=== PATIENT | male | born 1975 | race American Indian/Alaskan Native ===

== ENCOUNTER 2018-08-04 20:44 | Emergency (ER) | payer MEDICAID, OTHER, SELFPAY ==
--- NOTE | 2018-08-04 20:47 | ED_ITS ---
HPI - Extremity Injury (Lower) <ASHLEY Oscar - Last Filed: 08/04/18 22:00> General Chief Complaint: Extremity Problem,Nontraumatic Stated Complaint: right leg swelling Time Seen by Provider: 08/04/18 20:46 Source: patient Mode of arrival: ambulatory Limitations: no limitations History of Present Illness HPI Narrative: Healthy 43-year-old male that is an everyday smoker here for complaint of redness to his anterior knee area over the past couple of days. He denies any trauma to the knee. He states that the redness is worsened over the past day. He denies any drainage from the area. No fevers no chills. He is ambulatory into the emergency room. Pain is limited to the anterior portion the right knee and just distal. He denies any other concerns or complaints at this time. Increased pain with palpation to the area Related Data Previous Rx's Medication Instructions Recorded clindamycin HCl 300 mg PO QID #27 cap 08/04/18 Allergies Allergy/AdvReac Type Severity Reaction Status Date / Time No Known Drug Allergies Allergy Verified 08/04/18 21:01 Review of Systems <ASHLEY Oscar - Last Filed: 08/04/18 22:00> Review of Systems All systems reviewed & are unremarkable except as noted in HPI and below Constitutional Denies chills, Denies fever(s), Denies lethargy and Denies weakness Eyes Denies change in vision, Denies eye discharge, Denies irritation and Denies loss of vision ENT Ears, Nose, Mouth, and Throat: Denies change in voice, Denies neck pain and Denies sore throat Cardiovascular Denies chest pain, Denies irregular heart rhythm, Denies lightheadedness, Denies palpitations, Denies dyspnea, Denies dyspnea on exertion and Denies orthopnea Respiratory Denies cough, Denies dyspnea, Denies dyspnea on exertion and Denies wheezing Gastrointestinal Gastrointestinal: Denies abdominal pain, Denies change in bowel habits, Denies diarrhea, Denies nausea and Denies vomiting Genitourinary Denies hematuria, Denies flank pain, Denies urinary incontinence and Denies urinary urgency Musculoskeletal Denies neck pain Comments: Redness and discomfort to the right anterior knee/leg Integumentary/Breasts Denies pruritus, Denies erythema, Denies rash and Denies wounds Neurologic Denies confusion, Denies loss of vision and Denies weakness Psychiatric Denies anxiety, Denies confusion, Denies depression, Denies homicidal ideation and Denies suicidal ideation Endocrine Denies palpitations Hematologic/Lymphatic Denies easy bruising Allergic/Immunologic Denies wheezing Exam <ASHLEY Oscar - Last Filed: 08/04/18 22:00> Initial Vital Signs Initial Vital Signs: Vital Signs Temperature 98.8 F 08/04/18 20:57 Pulse Rate 88 08/04/18 20:57 Respiratory Rate 16 08/04/18 20:57 Blood Pressure 137/87 08/04/18 20:57 Pulse Oximetry 98 08/04/18 20:57 Const General: cooperative and well developed Nutritional Appearance: well nourished Orientation: alert, awake, oriented x3 and not confused HENMT Mouth: oral mucosae normal and moist mucous membranes Eyes Conjunctivae: conjunctivae normal Sclera: sclerae normal Pupils: PERRL EOM: EOM intact bilaterally Resp Effort & Inspection: normal respiratory effort, able to speak in complete sentences, no respiratory distress and no use of accessory muscles Auscultation: clear to auscultation bilaterally, no rales, no rhonchi and no wheezes Cardio Rate: regular rate Rhythm: regular rhythm Heart Sounds: no click, no gallops, no murmurs and no rubs Pulses: normal peripheral pulses Skin General: no rashes or lesions noted, No jaundice and No petechiae Neuro General: alert, oriented x3, gait normal and no focal motor deficits Speech: speech normal Extrem Other: Area of erythema to the anterior right knee/proximal benito area roughly 10 -15 cm in diameter. No induration. No fluctuance. Distal sensation is intact. Distal pulses are intact. Distal range of motion is intact. <Amilcar Emmanuel DO - Last Filed: 08/04/18 23:36> Initial Vital Signs Initial Vital Signs: Vital Signs Temperature 98.8 F 08/04/18 20:57 Pulse Rate 88 08/04/18 20:57 Respiratory Rate 16 08/04/18 20:57 Blood Pressure 137/87 08/04/18 20:57 Pulse Oximetry 98 08/04/18 20:57 Course <ASHLEY Oscar - Last Filed: 08/04/18 22:00> Orders Ordered: Discontinued Medications Clindamycin HCl (Cleocin) 300 mg PO NOW ONE Stop: 08/04/18 21:10 Last Admin: 08/04/18 21:21 Dose: 300 mg Vital Signs - 8 hr 08/04/18 20:57 08/04/18 21:49 Temperature 98.8 F 98.7 F Pulse Rate 88 77 Respiratory Rate 16 16 Blood Pressure 137/87 136/84 Pulse Oximetry 98 99 <Amilcar Emmanuel DO - Last Filed: 08/04/18 23:36> Orders Ordered: Discontinued Medications Clindamycin HCl (Cleocin) 300 mg PO NOW ONE Stop: 08/04/18 21:10 Last Admin: 08/04/18 21:21 Dose: 300 mg Vital Signs - 8 hr 08/04/18 20:57 08/04/18 21:49 Temperature 98.8 F 98.7 F Pulse Rate 88 77 Respiratory Rate 16 16 Blood Pressure 137/87 136/84 Pulse Oximetry 98 99 MDM - Extremity Injury (Lower) <ASHLEY Oscar - Last Filed: 08/04/18 22:00> MDM Narrative Medical decision making narrative: Sinus symptoms presents as starting cellulitis to the anterior portion of the right knee/leg. He is placed on clindamycin orally. He is instructed to follow up with primary care provider in the next few days for re-evaluation. Area of erythema was marked with a skin marker. For any worsening symptoms return to the emergency room for further evaluation. [id number] ibuprofen as needed for any discomfort Discharge Plan Departure Patient Disposition: Home Clinical Impression: Cellulitis of leg, right Discharge Date/Time: 08/04/18 21:50 Interventions: ED Discharge Assessment Last Done: 08/04/18 21:49 Instructions: DI for Cellulitis -- Adult Activity Restrictions/Additional Instructions: Signs and symptoms presents as starting cellulitis to the right leg area. You are placed on antibiotics called clindamycin use as directed. Use over-the- counter ibuprofen as needed for any discomfort. Follow up with her primary care provider in the next couple days for re-evaluation. For any worsening symptoms return to the emergency room. Prescriptions: New clindamycin HCl 300 mg capsule 300 mg PO QID Qty: 27 RF: 0 Referrals: Umair Rodriguez MD [Primary Care Provider] - <Amilcar Emmanuel DO - Last Filed: 08/04/18 23:36> Cosign ED Attending Cosignature Attestation: I was immediately available in the department for consultation. Documentation has been reviewed. I agree with assessment and plan.
[2018-08-04 20:57] VITALS: BP 137/87; PULSE 88; RESP 16; TEMP 37.1; O2SAT 98; BMI 38.2
[2018-08-04] MEDS: CLINDAMYCIN 150 MG CAPSULE 300 MG PO (21:21)
[2018-08-04 21:49] VITALS: BP 136/84; PULSE 77; RESP 16; TEMP 37.1; O2SAT 99
== END 2018-08-04 21:50 | disposition home or self-care (01) ==
PROVIDERS: Emergency Provider Nurse Practitioner Family; PCP Family Medicine
DX: L03.115 Cellulitis of right lower limb (principal)
CPT/HCPCS: 99282; 99283

== ENCOUNTER 2022-10-04 15:01 | Observation (INO) | payer MEDICAID, OTHER, SELFPAY ==
[2022-10-04] VITALS (14 sets, daily range): BP systolic 98–170; BP diastolic 53–88; PULSE 72–88; RESP 16–18; TEMP 37.5–38.6; O2SAT 94–100
[2022-10-04 18:32] LABS: Add Manual Diff / Slide Review NO; Basophils Absolute Auto 100 /uL (0-100); Basophils Percent Auto 0.3 % (0-2); Eosinophils Absolute Auto 0 /uL (0-450); Hematocrit 42.2 % (41-53); Hemoglobin 14.3 g/dL (13.5-17.5); Lymphocytes Absolute Auto 1800 /uL (1100-4500); Lymphocytes Percent Auto 8.2 % (25-40); Mean Corpuscular HGB Conc 33.9 % (30-36); Mean Corpuscular Hemoglobin 29.5 PG (26-34); Mean Corpuscular Volume 87.2 fL (80-100); Monocytes Absolute Auto 1300 /uL (0-900); Monocytes Percent Auto 6.1 % (3-14); Neutrophils Absolute Auto 19000 /uL (1500-7000); Neutrophils Percent Auto 85.4 % (50-75); Platelet Count 333 X10^3/uL (150-400); Red Blood Cell Count 4.84 X10^6/uL (4.5-5.9); Red Cell Distribution Width 13.5 % (11.6-14.8); White Blood Cell Count 22.3 X10^3/uL (4.5-11.0)
[2022-10-04 18:34] LABS: Alanine Aminotransferase 28 IU/L (<50); Albumin 4.9 g/dL (3.5-5.0); Albumin Globulin Ratio 0.9 (1.0-2.8); Alkaline Phosphatase 126 U/L (38-126); Aspartate Aminotransferase 30 IU/L (17-59); BUN Creatinine Ratio 10.5 (6-22); Bilirubin Total 1.2 mg/dL (0.2-1.3); Blood Urea Nitrogen 15 mg/dL (9-20); Calcium 9.1 mg/dL (8.4-10.2); Carbon Dioxide 30 mmol/L (22-32); Chloride 99 mmol/L (98-107); Estimated Glomerular Filt Rate > 60 mL/min (>60); Globulin 5.2 g/dL (1.7-4.1); Glucose 134 mg/dL (70-100); HEMOLYSIS < 15 (0-50); Lipase 107 U/L (23-300); Potassium 3.9 mmol/L (3.4-5.1); Sodium 137 mmol/L (137-145); Total Protein 10.1 g/dL (6.3-8.2)
[2022-10-04 18:36] LABS: Amorphous Sediment Urine 1+; Bacteria Urine Occasional (0-1); Ictotest Urine Positive (Negative); Mucus Urine 2+ (Negative); RBC Urine 0-1/HPF (0-5/HPF); Squamous Epithelial Cell Urine 1-5 /HPF (0-5/HPF); WBC Urine 5-10/HPF (0-5/HPF)
--- NOTE | 2022-10-04 18:53 | DI.CT.S_ITS ---
PROCEDURE: CT ABDOMEN PELVIS W CON INDICATIONS: abdominal pain TECHNIQUE: After the administration of IV contrast, axial sections were acquired from the lung bases to the pubic symphysis. Coronal and sagittal reformats were performed. For radiation dose reduction, the following was used: automated exposure control, adjustment of mA and/or kV according to patient size. COMPARISON: None. FINDINGS: Image quality: There is mild motion artifact. Lung bases: There are small clustered indistinct nodules posteriorly within the lower lobes with areas of confluence inferiorly. Smaller indistinct clustered ground-glass nodules are also noted within the right middle lobe and left lingula. Heart: Heart is normal in size. ABDOMEN: Liver: No mass lesion. Gallbladder: Multiple calcified gallstones are demonstrated within a distended gallbladder with mild gallbladder wall thickening. No pericholecystic fluid or fat stranding. Biliary ducts: No biliary ductal dilatation. Pancreas: Unremarkable. Spleen: Normal in size. Adrenal Glands: No adrenal nodules. Kidneys and Ureters: No hydronephrosis. There is a small cyst in the left kidney. Stomach and Bowel: Stomach, small bowel loops, and colon are normal in caliber and wall thickness. Appendix is normal in appearance. Peritoneum: No abnormal intraperitoneal fluid. No free air. Ventral Wall: No hernia. Abdominal Nodes: No retroperitoneal or mesenteric adenopathy by size criteria. Vessels: Aorta and inferior vena cava are normal in size. PELVIS: Pelvic Organs: Unremarkable. Bladder: Unremarkable. Pelvic Nodes: No enlarged lymph nodes. Miscellaneous: No inguinal hernias are seen. Bones: Visualized osseous structures demonstrate no suspicious focal lesions. IMPRESSION: 1. Cholelithiasis with mild gallbladder wall thickening and distention but no pericholecystic fluid or fat stranding. The findings may reflect acute cholecystitis and further evaluation is recommended with ultrasound if clinically indicated. 2. Small clustered nodules within the visualized lung bases most prominent in the lower lobes. The findings are consistent with an infectious or inflammatory process, and are suggestive of atypical pneumonia. 3. No evidence of appendicitis. Dictated by: Dusty Mcmahon M.D. on 10/04/2022 at 20:21 Approved by: Dusty Mcmahon M.D. on 10/04/2022 at 20:24
--- NOTE | 2022-10-04 19:31 | PC.NURSE ---
received to 7 @ [id number]
--- NOTE | 2022-10-04 19:40 | ED.GENADULT ---
HPI - General Adult General Chief complaint: Abdominal Pain Stated complaint: Cant eat or drink,constipation for couple weeks Time Seen by Provider: 10/04/22 19:33 Source: patient Mode of arrival: Ambulatory History of Present Illness HPI narrative: Patient is a 47-year-old male who for the past couple weeks has had abdominal discomfort. He states that because of the discomfort he can not eat and drink. Is having nausea and vomiting today. Eating and drinking makes his symptoms worse. The symptoms have worsened over the past couple days. Is having nausea. Also states that he has not had a bowel movement the past 2 or 3 days.. Denies any urinary symptoms. No prior abdominal surgeries. Has not tried anything for symptoms prior to arrival. Denies chest pain and shortness of breath Related Data Previous Rx's Medication Instructions Recorded clindamycin HCl 300 mg capsule 300 mg PO QID #27 caps 08/04/18 Allergies Allergy/AdvReac Type Severity Reaction Status Date / Time No Known Drug Allergies Allergy Verified 08/04/18 21:01 Review of Systems Constitutional Constitutional: Reports system reviewed and no additional complaints, except as documented Cardiovascular Cardiovascular: Reports system reviewed and no additional complaints, except as documented Respiratory Respiratory: Reports system reviewed and no additional complaints, except as documented Gastrointestinal Gastrointestinal: Reports system reviewed and no additional complaints, except as documented Genitourinary Genitourinary: Reports system reviewed and no additional complaints, except as documented Integumentary/Breasts Skin/Breast: Reports system reviewed and no additional complaints, except as documented Patient History Social History Smoking Status: Current every day smoker Smoking Status: Current every day smoker tobacco type: cigarettes and vaping alcohol intake frequency: 0-2 drinks per day Substance Use Type: does not use Exam Initial Vital Signs Initial Vital Signs: Vital Signs Temperature 99.5 F 10/04/22 15:19 Pulse Rate 88 10/04/22 15:19 Respiratory Rate 18 10/04/22 15:19 Blood Pressure 145/72 H 10/04/22 15:19 Pulse Oximetry 98 10/04/22 15:19 Oxygen Delivery Method Room Air 10/04/22 15:19 Const General: cooperative and No ill appearing HENMT Head: normal to inspection and normocephalic Resp Effort & Inspection: normal respiratory effort Auscultation: clear to auscultation bilaterally Cardio Rate: regular rate Rhythm: regular rhythm GI Inspection: normal to inspection Palpation: soft, No firm and tender (Generalized tenderness) Skin General: no rashes or lesions noted Neuro General: patient alert, patient awake and moves all extremities Extrem General: capillary refill normal Course Orders Ordered: ED Orders 10/04/22 18:02 Ictotest Urine Stat Urine Culture Stat Urine Culture Stat Urine Microscopic Stat 10/04/22 18:13 Complete Blood Count AUTO DIFF Stat Comprehensive Metabolic Panel Stat Lipase Stat 10/04/22 18:53 CT abdomen pelvis w con Stat 10/04/22 20:31 US abdomen limited Stat 10/04/22 22:41 Consult to General Surgery Urgent Hydromorphone HCl (Hydromorphone 0.5 Mg Inj) 1 mg IV Q2H PRN PRN Reason: Pain, Moderate (4-6) Ondansetron HCl (Ondansetron 4 Mg/2 Ml Inj) 4 mg IV Q4HR PRN PRN Reason: Nausea And Vomiting Discontinued Medications Acetaminophen (Acetaminophen 325 Mg Tablet) 650 mg PO NOW ONE Stop: 10/04/22 23:24 Last Admin: 10/04/22 23:36 Dose: 650 mg Documented By: DEB Sodium Chloride (Normal Saline 0.9%) 1,000 mls @ 1,000 mls/hr IV BOLUS ONE Stop: 10/04/22 20:40 Last Infusion: 10/04/22 20:56 Dose: 0 mls/hr Documented By: Admin: 10/04/22 19:49 Dose: 1,000 mls/hr Documented By: DEB Piperacillin Sod/Tazobactam (Sod 4.5 gm/ Sodium Chloride) 100 mls @ 200 mls/hr IV NOW ONE Stop: 10/04/22 22:41 Last Infusion: 10/04/22 23:55 Dose: 0 mls/hr Documented By: Admin: 10/04/22 23:01 Dose: 200 mls/hr Documented By: DEB Morphine Sulfate (Morphine 4 Mg/Ml Inj) 4 mg IV NOW ONE Stop: 10/04/22 19:41 Last Admin: 10/04/22 19:49 Dose: 4 mg Documented By: DEB Ondansetron HCl (Ondansetron 4 Mg Odt) 4 mg PO NOW PRN PRN Reason: Nausea And Vomiting Ondansetron HCl (Ondansetron 4 Mg/2 Ml Inj) 4 mg IV NOW PRN PRN Reason: Nausea And Vomiting Ondansetron HCl (Ondansetron 4 Mg/2 Ml Inj) 4 mg IV NOW ONE Stop: 10/04/22 19:41 Last Admin: 10/04/22 19:48 Dose: 4 mg Documented By: DEB Vital Signs Vital signs: Vital Signs - 8 hr 10/04/22 19:30 10/04/22 19:30 10/04/22 19:53 Pulse Rate 72 80 Respiratory Rate Blood Pressure 142/72 H Pulse Oximetry 97 97 10/04/22 19:53 10/04/22 20:00 10/04/22 20:00 Pulse Rate 77 Respiratory Rate Blood Pressure 136/71 136/68 Pulse Oximetry 97 10/04/22 20:30 10/04/22 20:30 10/04/22 21:00 Pulse Rate 78 Respiratory Rate Blood Pressure 122/64 98/53 L Pulse Oximetry 94 10/04/22 21:00 10/04/22 21:30 10/04/22 21:30 Pulse Rate 76 72 Respiratory Rate 16 Blood Pressure 135/68 Pulse Oximetry 96 100 10/04/22 22:00 10/04/22 22:00 10/04/22 22:30 Pulse Rate 80 Respiratory Rate Blood Pressure 126/70 131/71 Pulse Oximetry 99 10/04/22 22:30 Pulse Rate 79 Respiratory Rate Blood Pressure Pulse Oximetry 98 Medical Decision Making Lab Data Lab results reviewed: Yes I reviewed the patient's lab results. 10/04/22 18:13 10/04/22 18:13 Labs: Lab Results 10/04/22 10/04/22 10/04/22 Range/Units 18:02 18:13 18:13 WBC 22.3 H (4.5-11.0) X10^3/uL RBC 4.84 (4.5-5.9) X10^6/uL Hgb 14.3 (13.5-17.5) g/dL Hct 42.2 (41-53) % MCV 87.2 (80-100) fL MCH 29.5 (26-34) PG MCHC 33.9 (30-36) % RDW 13.5 (11.6-14.8) % Plt Count 333 (150-400) X10^3/uL Neut % (Auto) 85.4 H (50-75) % Lymph % (Auto) 8.2 L (25-40) % [place] % (Auto) 6.1 (3-14) % Eos % (Auto) 0.0 L (2-4) % Baso % (Auto) 0.3 (0-2) % Neut # (Auto) 20318 H (5646-9987) /uL Lymph # (Auto) 1800 (1219-8661) /uL [place] # (Auto) 1300 H (0-900) /uL Eos # (Auto) 0 (0-450) /uL Baso # (Auto) 100 (0-100) /uL Sodium 137 (137-145) mmol/L Potassium 3.9 (3.4-5.1) mmol/L Chloride 99 (98-107) mmol/L Carbon Dioxide 30 (22-32) mmol/L BUN 15 (9-20) mg/dL Creatinine 1.43 H (0.66-1.25) mg/dL Estimated GFR > 60 (>60) mL/min BUN/Creatinine Ratio 10.5 (6-22) Glucose 134 H (70-100) mg/dL Calcium 9.1 (8.4-10.2) mg/dL Total Bilirubin 1.2 (0.2-1.3) mg/dL AST 30 (17-59) IU/L ALT 28 (<50) IU/L Alkaline Phosphatase 126 (38-126) U/L Total Protein 10.1 H (6.3-8.2) g/dL Albumin 4.9 (3.5-5.0) g/dL Globulin 5.2 H (1.7-4.1) g/dL Albumin/Globulin Ratio 0.9 L (1.0-2.8) Lipase 107 (23-300) U/L Ur Bilirubin Confirm Positive H (Negative) Urine RBC 0-1/hpf (0-5/HPF) Urine WBC 5-10/hpf H (0-5/HPF) Ur Squamous Epith Cells 1-5 /hpf (0-5/HPF) Amorphous Sediment 1+ Urine Bacteria Occasional (0-1) (None) Urine Mucus 2+ H (Negative) Ur Culture Indicated? Spotter Urine Dip Bedside Urine Glucose Negative Bedside Urine Bilirubin + 1 Bedside Urine Ketone - Negative Urine Specific [place] 1.030 Bedside Urine Occult Blood - Negative Bedside Urine pH 6.0 Bedside Urine Protein + 30 Bedside Urine Urobilinogen - Negative Bedside Urine Nitrite - Negative Bedside Urine Leukocytes - Negative Esterase Point of care testing: Urine Dip Bedside Urine Glucose Negative Bedside Urine Bilirubin + 1 Bedside Urine Ketone - Negative Urine Specific [place] 1.030 Bedside Urine Occult Blood - Negative Bedside Urine pH 6.0 Bedside Urine Protein + 30 Bedside Urine Urobilinogen - Negative Bedside Urine Nitrite - Negative Bedside Urine Leukocytes - Negative Esterase Imaging Data CT scan - abdomen/pelvis: Radiologist's Impression: PROCEDURE:? CT ABDOMEN PELVIS W CON ? INDICATIONS:? abdominal pain ? TECHNIQUE:? After the administration of IV contrast, axial sections were acquired from the lung bases to the pubic symphysis.? Coronal and sagittal reformats were performed.? For radiation dose reduction, the following was used:? automated exposure control, adjustment of mA and/or kV according to patient size. ? COMPARISON:? None. ? FINDINGS:? Image quality:? There is mild motion artifact.? ? Lung bases:? There are small clustered indistinct nodules posteriorly within the lower lobes with areas of confluence inferiorly.? Smaller indistinct clustered ground-glass nodules are also noted within the right middle lobe and left lingula.? ? Heart:? Heart is normal in size. ? ? ABDOMEN: Liver:? No mass lesion. Gallbladder:? Multiple calcified gallstones are demonstrated within a distended gallbladder with mild gallbladder wall thickening.? No pericholecystic fluid or fat stranding. Biliary ducts:? No biliary ductal dilatation.? ? Pancreas:? Unremarkable.? ? Spleen:? Normal in size.? ? Adrenal Glands:? No adrenal nodules.? ? Kidneys and Ureters:? No hydronephrosis.? There is a small cyst in the left kidney. ? ? Stomach and Bowel:? Stomach, small bowel loops, and colon are normal in caliber and wall thickness.? Appendix is normal in appearance.? Peritoneum:? No abnormal intraperitoneal fluid.? No free air.? ? Ventral Wall: ? No hernia.? Abdominal Nodes:? No retroperitoneal or mesenteric adenopathy by size criteria.? Vessels:? Aorta and inferior vena cava are normal in size.? ? PELVIS: Pelvic Organs:? Unremarkable.? ? Bladder:? Unremarkable.? ? Pelvic Nodes: No enlarged lymph nodes.? Miscellaneous: No inguinal hernias are seen. ? ? ? Bones:? Visualized osseous structures demonstrate no suspicious focal lesions. ? IMPRESSION:? ? 1. Cholelithiasis with mild gallbladder wall thickening and distention but no pericholecystic fluid or fat stranding.? The findings may reflect acute cholecystitis and further evaluation is recommended with ultrasound if clinically indicated. ? 2. Small clustered nodules within the visualized lung bases most prominent in the lower lobes.? The findings are consistent with an infectious or inflammatory process, and are suggestive of atypical pneumonia. ? 3. No evidence of appendicitis.? US - abdomen: Radiologist's Impression: PROCEDURE: US ABDOMEN LIMITED ? INDICATIONS:? RUQ pain eval for GB pathology ? TECHNIQUE:? Real-time focused scanning was performed of the abdomen, with image documentation.? ? COMPARISON:? [facility], CT, CT ABDOMEN PELVIS W CON, 10/04/2022, 19:36. ? FINDINGS:? ? The liver demonstrates increased no focal mass lesions.? ? The gallbladder is distended with multiple echogenic shadowing gallstones.? There is mild wall thickening measuring up to 0.5 cm.? No pericholecystic fluid.? No reported sonographic Mena's sign. ? No definite intra or extrahepatic biliary ductal dilatation. ? Pancreas was not well seen due to bowel gas. ? IMPRESSION:? ? 1. Distention of the gallbladder with cholelithiasis and mild wall thickening but no pericholecystic fluid or reported sonographic Mena's sign.? The findings are equivocal for acute cholecystitis and correlation is recommended clinically. MDM Narrative Medical decision making narrative: Patient was generalized abdominal tenderness. CT scan the abdomen showed potential gallbladder pathology but no other intra-abdominal surgical issue. Right upper quadrant ultrasound does show cholelithiasis given his presentation certain for acute cholecystitis/symptomatic cholelithiasis. Patient has a leukocytosis. Patient was started on antibiotics. Blood cultures obtained. Patient not hypotensive. Discussed the case with Dr. Pretty on-call for General surgery who will admit for further evaluation and treatment. Discussed need for admission with the patient and his . They expressed understanding and agreement. Discharge Plan Departure Patient Disposition: Admitted As Inpatient Clinical Impression: Acute cholecystitis Admit Date/Time: 10/04/22 22:41 Admit Provider: Gurpreet Pretty
[2022-10-04] MEDS: ONDANSETRON 4 MG/2 ML INJ IV (19:48)
[2022-10-04] MEDS: MORPHINE 4 MG/ML INJ IV (19:49)
[2022-10-04] MEDS: SODIUM CHLORIDE 0.9% 1,000 ML 1000 ML IV (19:49)
--- NOTE | 2022-10-04 20:31 | DI.US.S_ITS ---
PROCEDURE: US ABDOMEN LIMITED INDICATIONS: RUQ pain eval for GB pathology TECHNIQUE: Real-time focused scanning was performed of the abdomen, with image documentation. COMPARISON: [facility], CT, CT ABDOMEN PELVIS W CON, 10/04/2022, 19:36. FINDINGS: The liver demonstrates increased no focal mass lesions. The gallbladder is distended with multiple echogenic shadowing gallstones. There is mild wall thickening measuring up to 0.5 cm. No pericholecystic fluid. No reported sonographic Mena's sign. No definite intra or extrahepatic biliary ductal dilatation. Pancreas was not well seen due to bowel gas. IMPRESSION: 1. Distention of the gallbladder with cholelithiasis and mild wall thickening but no pericholecystic fluid or reported sonographic Mena's sign. The findings are equivocal for acute cholecystitis and correlation is recommended clinically. Dictated by: Dusty Mcmahon M.D. on 10/04/2022 at 21:54 Approved by: Dusty Mcmahon M.D. on 10/04/2022 at 21:57
[2022-10-04] MEDS: PIPERACILLIN/TAZO 4.5 GM in SODIUM CHLORIDE 0.9% 100 ML IV (23:01)
[2022-10-04] MEDS: ACETAMINOPHEN 325 MG TABLET 650 MG PO (23:36)
--- NOTE | 2022-10-04 23:52 | PC.NURSE ---
pt moved to rm 12 for pt comfort and chair given to
[2022-10-05] VITALS (26 sets, daily range): BP systolic 111–161; BP diastolic 58–83; PULSE 56–91; RESP 14–20; TEMP 36.7–37.9; O2SAT 92–99; BMI 32.8
--- NOTE | 2022-10-05 | PATH_ITS ---
[facility] Accession Number: [id number] No. of containers..01 Tissue . 01 Material submitted: . gallbladder - GALLBLADDER . 01 Diagnosis: Gallbladder, Cholecystectomy: Chronic active cholecystitis with cholelithiasis. Negative for dysplasia and malignancy. [facility] 10/10/2022 1006 Local . 01 Electronically signed: . Lelsie Hurd MD, Pathologist NPI- [id number] . 01 Gross description: . The specimen is received in formalin labeled with the patient's name, , and gallbladder consists of a disrupted gallbladder measuring 12.7 x 3.8 x 3.8 cm with yellow to congested, smooth serosa and roughened unremarkable hepatic surface. A full thickness defect is noted near the fundus measuring 0.7 cm in greatest dimension. The cystic duct is received closed with a clamp and is inked blue. A single lymph node candidate measuring 1.5 cm in greatest dimension is identified. The lumen contains multiple dark green to black calculi measuring up to 3.0 cm in greatest dimension grossly obstructing the cystic duct. A firm nodule is identified adjacent to the cystic duct measuring 1.7 x 1.4 x 1.4 cm. The external surface is inked black, and sectioning reveals hemorrhagic to bright, firm tissue surrounding the distal portion of the cystic duct. Also within the lumen is a small amount of bright viscous bile. The mucosa ranges from velvety to trabecular with several pinpoint yellow areas of discoloration consistent with cholesterol. No polyps or lesions are grossly identified. The spicer average 0.5 cm thick. [employer] sections are submitted as follows: A1: Cystic duct margin, one-half of bisected lymph node candidate, and full thickness sections. A2: [employer] nodule at cystic duct. ([id number]) /MRV 10/06/2022 1306 Local . 01 Pathologist provided ICD-10: K80.60 . 01 CPT . 081101 Specimen Comment: A courtesy copy of this report has been sent to [phone] Performed at: 01 [facility] [address] [place] [address] [id number] MD Dusyt Milligan MD Phone: [phone]
[2022-10-05] MEDS: HYDROMORPHONE 0.5 MG INJ 1 MG IV ×2 (07:33→18:32)
[2022-10-05] MEDS: ONDANSETRON 4 MG/2 ML INJ IV ×2 (07:34→18:00)
[2022-10-05 07:43] LABS: COVID19 -Nasal RAPID Negative (Negative)
[2022-10-05 08:51] LABS: MRSA (Nasal) PCR Not Detected (Not Detect)
[2022-10-05] MEDS: SODIUM CHLORIDE 0.9% 1,000 ML 100 ML IV (08:54)
[2022-10-05] MEDS: PIPERACILLIN/TAZO 3.375 GM in SODIUM CHLORIDE 0.9% 100 ML IV ×3 (08:54→23:50)
[2022-10-05] MEDS: OXYCODONE IR 5 MG TABLET PO (09:30)
[2022-10-05] MEDS: ACETAMINOPHEN 325 MG TABLET 650 MG PO ×2 (09:31→20:33)
--- NOTE | 2022-10-05 13:07 | PM.HP.1 ---
History of Present Illness History of Present Illness Date Patient Seen: 10/05/22 Time Patient Seen: 13:07 Chief complaint: Cant eat or drink,constipation for couple weeks Narrative: 47-year-old man admitted to the hospital with acute cholecystitis. He has been having postprandial intermittent right upper quadrant pain since June 2022. For the past several days he has constant severe right upper quadrant pain. Presented to the [facility] Emergency Department last night for evaluation. White blood cell count 22, creatinine 1.43 bilirubin AST ALT alk-phos within normal limits. Ultrasound and CT abdomen pelvis significant for gallbladder wall thickening and cholelithiasis. Patient History Family & Social History Social History: household members spouse Prior Living Arrangements House Safety & Behavioral: Feels Safe in Current Yes Environment Been Physically Hurt or No Threatened By a Person Tobacco & Substance use: Tobacco type cigarettes Smoking Status Current every day smoker alcohol intake never alcohol intake frequency 0-2 drinks per day Substance Use Type does not use Meds Home Medications and Allergies Home Medications Medication Instructions Recorded Confirmed Type No Known Home Medications 10/05/22 10/05/22 History Allergies Allergy/AdvReac Type Severity Reaction Status Date / Time No Known Drug Allergies Allergy Verified 08/04/18 21:01 Exam Vital Signs (past 8 hours): - 10/05/22 05:30 10/05/22 06:00 10/05/22 06:00 Temperature Pulse Rate 62 64 Respiratory Rate 14 Blood Pressure 118/66 Pulse Oximetry 96 96 Oxygen Delivery Method Oxygen Flow Rate 10/05/22 06:30 10/05/22 07:02 10/05/22 07:45 Temperature 98.0 F Pulse Rate 69 67 63 Respiratory Rate 20 Blood Pressure 134/62 Pulse Oximetry 97 97 97 Oxygen Delivery Method Room Air Oxygen Flow Rate 0 Oxygen Delivery Method Room Air Oxygen Flow Rate 0 Narrative Exam Narrative: General adult man alert oriented no acute distress Chest nonlabored respiration Abdomen tender right upper quadrant no surgical scars Objective Labs 10/04/22 18:13 10/04/22 18:13 Labs: Laboratory Results - last 24 hr 10/04/22 10/04/22 10/04/22 18:02 18:13 18:13 WBC 22.3 H RBC 4.84 Hgb 14.3 Hct 42.2 MCV 87.2 MCH 29.5 MCHC 33.9 RDW 13.5 Plt Count 333 Neut % (Auto) 85.4 H Lymph % (Auto) 8.2 L [place] % (Auto) 6.1 Eos % (Auto) 0.0 L Baso % (Auto) 0.3 Neut # (Auto) 27643 H Lymph # (Auto) 1800 [place] # (Auto) 1300 H Eos # (Auto) 0 Baso # (Auto) 100 Sodium 137 Potassium 3.9 Chloride 99 Carbon Dioxide 30 BUN 15 Creatinine 1.43 H Estimated GFR > 60 BUN/Creatinine Ratio 10.5 Glucose 134 H Calcium 9.1 Total Bilirubin 1.2 AST 30 ALT 28 Alkaline Phosphatase 126 Total Protein 10.1 H Albumin 4.9 Globulin 5.2 H Albumin/Globulin Ratio 0.9 L Lipase 107 Ur Bilirubin Confirm Positive H Urine RBC 0-1/hpf Urine WBC 5-10/hpf H Ur Squamous Epith Cells 1-5 /hpf Amorphous Sediment 1+ Urine Bacteria Occasional (0-1) Urine Mucus 2+ H Ur Culture Indicated? Dietary Services Director Nasal Screen MRSA (PCR) SARS-CoV-2 (PCR) 10/05/22 10/05/22 06:44 07:40 WBC RBC Hgb Hct MCV MCH MCHC RDW Plt Count Neut % (Auto) Lymph % (Auto) [place] % (Auto) Eos % (Auto) Baso % (Auto) Neut # (Auto) Lymph # (Auto) [place] # (Auto) Eos # (Auto) Baso # (Auto) Sodium Potassium Chloride Carbon Dioxide BUN Creatinine Estimated GFR BUN/Creatinine Ratio Glucose Calcium Total Bilirubin AST ALT Alkaline Phosphatase Total Protein Albumin Globulin Albumin/Globulin Ratio Lipase Ur Bilirubin Confirm Urine RBC Urine WBC Ur Squamous Epith Cells Amorphous Sediment Urine Bacteria Urine Mucus Ur Culture Indicated? Nasal Screen MRSA (PCR) Not detected SARS-CoV-2 (PCR) Negative Assessment & Plan Assessment and plan (1) Acute cholecystitis: Status: Acute Assessment & Plan narrative: 47-year-old man with symptoms laboratory studies and radiographic findings consistent with acute cholecystitis. We discussed management and I recommended proceeding with laparoscopic cholecystectomy. Overview of the operation was discussed with the patient. Operative risks including hemorrhage, infection, damage to surrounding structures, bile duct injury. His questions have been answered he is in agreement with this plan he provides his verbal and written consent to proceed. Time Spent With Patient Critical Care time: I spent a total of [] minutes of critical care time on this patient's care today; this time is exclusive of procedural time. Quality VTE Deep Vein Thrombosis/Pulmonary Embolism Present on Admission: No
--- NOTE | 2022-10-05 14:47 | PC.NURSE ---
Day Shift Patient arrived from ER to room 229 at 0720, independent in room, steady on feet. Medicated with Dilaudid and zofran on arrival - see emar. NPO. Oriented to room/call light/tv controls. IVF and zosyn infusing. Taken to surgery at 1447, report given to Janay PERKINS.
[2022-10-05] MEDS: LACTATED RINGERS 1,000 ML 42 ML IV ×2 (15:14→17:26)
--- NOTE | 2022-10-05 16:22 | SUR.OPER ---
Supine on padded OR bed, head on pillow, safety belt at thigh, left arm padded and tucked at side. Right arm secured on padded arm board <90 degrees abduction. Legs uncrossed. Padded footboard in place. Tape over blanket to secure lower legs. Gel pad under bilateral heels.
[2022-10-05] MEDS: BUPIVACAINE 0.25% (PF) VIAL 30 ML INJ (16:42)
[2022-10-05] MEDS: TRANEXAMIC ACID 1,000 MG in SODIUM CHLORIDE 0.9% 100 ML 200 MG IV (17:16)
--- NOTE | 2022-10-05 17:53 | P.OP_ITS ---
Operative Date/Time/Diagnoses Date of procedure: 10/05/22 Time of procedure: 17:53 Pre-op diagnosis: acute cholecystitis Post-op diagnosis: other (chronic cholecystitis) Procedure & Clinicians Procedure: Laparoscopic cholecystectomy Same procedure as scheduled: Yes Indications: 47-year-old man with right upper quadrant pain since June presents to the emergency room 4 months later with acute on chronic pain found to have acute cholecystitis Surgeon: Gurpreet Pretty Anesthesia Type: General Operative Notes Findings: foreshortened cystic duct purulence from the gallbladder diffuse oozing from the gallbladder fossa. Specimen(s): other (gallbladder) Estimated Blood Loss (mL): 500 Procedure in detail: The patient was placed supine on the table and bilateral lower extremity compression devices were applied. Anesthesia was induced they were intubated with an endotracheal tube and received Zosyn. A time-out was performed. They were prepped and draped in sterile fashion. An infraumbilical incision was made. The fascia was elevated incised and the abdomen was entered atraumatically. A blunt tip 12mm balloon trocar was then inserted, pneumoperitoneum was established and inspection of the abdomen demonstrated no evidence of injury. They were placed head up and right side up and then a 11 mm port was placed high in the epigastrium and two 5mm in the right upper quadrant. The gallbladder was chronically inflamed and tense. It was percutaneously aspirated. The gallbladder was grasped by the fundus and retracted over the liver and retracted laterally by the infundibulum. Using electrocautery the lateral plane between the gallbladder and the liver was opened towards the fundus. The gallbladder was then retracted laterally and the medial plane was developed in the same manner. With the gallbladder mobilized the bottom of the cystic plate was visualized. The hepatocystic triangle was meticulosly skeletonized with blunt dissection of fat and fibrous tissue from both the front and the back. Only two structures were then clearly seen entering the gallbladder the cystic duct and the cystic artery. The cystic duct was significantly foreshortened. With the critical view of safety fully established the cystic duct was clipped twice proximally and once distally using the 10 mm Weck hemoclip applied under direct visualization and then sharply divided. There was a posterior branch of the cystic artery that hemorrhaged and this was controlled with a clip. The cystic artery was divided in the same fashion. The gallbladder was removed from the liver bed using electro cautery. The gallbladder fossa contiuned to ooze diffusely. It was ultimately controlled with electrocautery and a piece of surgicel was placed as well. TXA was administered. The abdomen was irrigated with sterile saline and inspection was made that showed the clips in good position. The specimen was removed using En do-Catch. The abdomen was desufflated. The umbilical fascia was closed with 0 Vicryl in a [id number] fashion under direct visualization. Skin incisions were irrigated and closed with 4-0 Monocryl. 30 ml of 0.25% bupivacaine was infiltrated into the subcutaneous tissue of the incisions. The wounds were sealed with Dermabond. Patient emerged from anesthesia was extubated and transferred to recovery in stable condition. The sponge and instrument count at the end of the operation was correct. Complications: none Post-operative Condition: stable Disposition: same day surgery
[2022-10-05] MEDS: OXYCODONE/ACETAMINOPHEN 5/325 TABLET 1 TAB PO (18:03)
[2022-10-05] MEDS: hydrOXYzine 50 MG/ML INJ 25 MG IM (18:04)
[2022-10-06] VITALS: BP 113/70; PULSE 71; RESP 17; TEMP 37.1; O2SAT 99
[2022-10-06] MEDS: ACETAMINOPHEN 325 MG TABLET 650 MG PO ×2 (03:38→13:35)
[2022-10-06] MEDS: OXYCODONE IR 5 MG TABLET PO ×2 (03:38→13:35)
[2022-10-06 04:00] VITALS: BP 135/69; PULSE 58; RESP 17; TEMP 37.2; O2SAT 97
[2022-10-06] MEDS: HYDROMORPHONE 0.5 MG INJ 1 MG IV (04:18)
[2022-10-06 04:23] LABS: Add Manual Diff / Slide Review NO; Basophils Absolute Auto 0 /uL (0-100); Basophils Percent Auto 0.1 % (0-2); Eosinophils Absolute Auto 0 /uL (0-450); Eosinophils Percent Auto 0.1 % (2-4); Hematocrit 34.4 % (41-53); Hemoglobin 11.8 g/dL (13.5-17.5); Lymphocytes Absolute Auto 1300 /uL (1100-4500); Lymphocytes Percent Auto 9.5 % (25-40); Mean Corpuscular HGB Conc 34.3 % (30-36); Mean Corpuscular Hemoglobin 29.6 PG (26-34); Mean Corpuscular Volume 86.4 fL (80-100); Monocytes Absolute Auto 600 /uL (0-900); Monocytes Percent Auto 4.4 % (3-14); Neutrophils Absolute Auto 12000 /uL (1500-7000); Neutrophils Percent Auto 85.9 % (50-75); Platelet Count 260 X10^3/uL (150-400); Red Blood Cell Count 3.98 X10^6/uL (4.5-5.9); Red Cell Distribution Width 13.4 % (11.6-14.8); White Blood Cell Count 13.9 X10^3/uL (4.5-11.0)
[2022-10-06 04:33] LABS: Alanine Aminotransferase 49 IU/L (<50); Albumin 3.8 g/dL (3.5-5.0); Alkaline Phosphatase 92 U/L (38-126); Aspartate Aminotransferase 86 IU/L (17-59); BUN Creatinine Ratio 15.7 (6-22); Bilirubin Total 0.8 mg/dL (0.2-1.3); Blood Urea Nitrogen 17 mg/dL (9-20); Calcium 8.1 mg/dL (8.4-10.2); Carbon Dioxide 30 mmol/L (22-32); Chloride 104 mmol/L (98-107); Estimated Glomerular Filt Rate > 60 mL/min (>60); Glucose 112 mg/dL (70-100); HEMOLYSIS < 15 (0-50); Potassium 4.2 mmol/L (3.4-5.1); Sodium 139 mmol/L (137-145); Total Protein 7.8 g/dL (6.3-8.2)
[2022-10-06 07:30] VITALS: BP 154/73; PULSE 72; RESP 19; TEMP 37; O2SAT 97
[2022-10-06] MEDS: PIPERACILLIN/TAZO 3.375 GM in SODIUM CHLORIDE 0.9% 100 ML IV (08:41)
--- NOTE | 2022-10-06 08:53 | P.PN_ITS ---
Subjective Subjective Date Patient Seen: 10/06/22 Time Patient Seen: 08:54 Interval history: Postop day 1 status post laparoscopic cholecystectomy for acute on chronic cholecystitis. No major overnight events. Abdominal pain controlled, ambulatory. Exam Vital Signs (past 8 hours): - 10/06/22 04:00 10/06/22 07:30 Temperature 98.9 F 98.6 F Pulse Rate 58 L 72 Respiratory Rate 17 19 Blood Pressure 135/69 154/73 H Pulse Oximetry 97 97 Oxygen Flow Rate 0 Oxygen Delivery Method Room Air Oxygen Flow Rate 0 Narrative Exam Narrative: General adult man alert oriented no acute distress Abdomen soft appropriately tender to palpation. ISMAEL drain serosanguineous. Abdomen appropriately tender to palpation. Objective Labs 10/06/22 03:45 10/06/22 03:45 Labs: Laboratory Results - last 24 hr 10/06/22 10/06/22 03:45 03:45 WBC 13.9 H RBC 3.98 L Hgb 11.8 L Hct 34.4 L MCV 86.4 MCH 29.6 MCHC 34.3 RDW 13.4 Plt Count 260 Neut % (Auto) 85.9 H Lymph % (Auto) 9.5 L [place] % (Auto) 4.4 Eos % (Auto) 0.1 L Baso % (Auto) 0.1 Neut # (Auto) 59461 H Lymph # (Auto) 1300 [place] # (Auto) 600 Eos # (Auto) 0 Baso # (Auto) 0 Sodium 139 Potassium 4.2 Chloride 104 Carbon Dioxide 30 BUN 17 Creatinine 1.08 Estimated GFR > 60 BUN/Creatinine Ratio 15.7 Glucose 112 H Calcium 8.1 L Total Bilirubin 0.8 AST 86 H ALT 49 Alkaline Phosphatase 92 Total Protein 7.8 Albumin 3.8 Globulin 4.0 Albumin/Globulin Ratio 1.0 ON LICENSE OF [facility] Social History household members: spouse Smoking Status: Current every day smoker alcohol intake: never Assessment & Plan Post-op Postoperative Procedures: Procedures Operation Date: 10/05/22 15:15 Actual Procedure Side Surgeon p Laparoscopic Cholecystectomy Not Applicable Gurpreet Pretty MD Postoperative status narrative: 47-year-old man postoperative day 1 status post laparoscopic cholecystectomy for acute on chronic cholecystitis. -anticipate discharge home with abdominal drain today -will discharge on p.o. antibiotics for a total of 5 days. -drain removal next week in surgical clinic when output is less than 50 mL per day. Quality VTE Deep Vein Thrombosis/Pulmonary Embolism Present on Admission: No
[2022-10-06 12:00] VITALS: BP 149/75; PULSE 68; RESP 19; TEMP 37; O2SAT 96
--- NOTE | 2022-10-06 13:39 | CM.DANOTE ---
DCP: Case received, EMR reviewed and met with patient. Spouse, Spring, was at bedside. Introduced self and role. Was able to obtain information regarding patient's baseline activity status prior to hospitalization. DCP assessment completed with information currently available. Patient is a 47 year old male who admitted Monday evening to the care of the hospitalist team. PCP: None currently, used to see Dr. Rodriguez. Payer: confirmed: Medicaid/[facility]. Patient came to the hospitalist via private vehicle secondary to having abdominal discomfort, unable to eat or drink. Patient was also noting nausea and vomiting. Patient was diagnosed with acute cholecystistitis. Patient had laparoscopic cholecystectomy yesterday. Met with patient in his room. Spouse at bedside. Patient was sitting up having his breakfast. He is alert and oriented, resides in [place] with spouse, Spring. He is independent at baseline. Asked him about primary provider,was Dr. Rodriguez. Dr. Rodriguez had seen patients at the [facility]. He did not know the new provider assigned. P: DCP to continue to follow. Note from Dr. Pretty indicates that patient most likely will DC tomorrow with drain, will have it removed at clinic when under 50 ml per day. Irma Sutherland RN/Telephonic Nurse Discharge Planning/Care Management CM Discharge Assessment Start: 10/06/22 12:49 Freq: Status: Active Protocol: Document 10/06/22 13:38 (Rec: 10/06/22 13:39 [id number]) Discharge Planning Assessment Assigned Trawl Net Maker Irma Sutherland RN/Telephonic Nurse Advance Directives? No History Provided By Patient,Medical Record Prior Living Arrangements House Household Members spouse Type of transporation used prior to Drives own vehicle admit Independent with ADL's Yes Is patient alert and oriented? Yes Caregiver for Another No Barriers to Discharge No Referrals Initiated None needed Whiteboard Updated in Patient Room with Yes name and ext. # of Trawl Net Maker Review Status In Process Next Review Type Continued Stay Review
== END 2022-10-06 14:52 | disposition home or self-care (01) ==
LOC: ED 22:41 → AC 10-05 07:11 → ICU 10-05 08:10 → AC 10-05 12:39
PROVIDERS: Emergency Medicine; Admitting Provider Surgery; Emergency Provider Emergency Medicine; Referring Provider Emergency Medicine; Visit Provider Surgery
PROC: 0FT44ZZ Resection of Gallbladder, Percutaneous Endoscopic Approach (ICD-10-PCS; CPT 47562; principal; 2022-10-05 15:15)
DX: K81.1 Chronic cholecystitis (principal); Z20.822 Contact with and (suspected) exposure to COVID-19
CPT/HCPCS: 47562; 36415; 74177; 76705; 80053; 81003; 81015; 83690; 85025; 87040; 87077; 87086; 87147; 87186; 87635; 87797; 99222; 99284; C9803; G0378; J0330; J1100; J1170; J2250; J2270; J2405; J2543; J2704; J3010; J3410; J3490

== ENCOUNTER 2024-05-09 19:27 | Emergency (ER) | payer MEDICAID, OTHER, SELFPAY ==
[2022-10-05 07:34] VITALS: BMI 32.8
[2024-05-09] VITALS (8 sets, daily range): BP systolic 125–135; BP diastolic 77–83; PULSE 94–107; RESP 16; TEMP 36.8; O2SAT 94–100
--- NOTE | 2024-05-09 20:31 | ED_ITS ---
HPI - Extremity Problem General Chief complaint: Extremity Problem,Nontraumatic Stated complaint: rt leg swelling and px, sores Time Seen by Provider: 05/09/24 19:44 Source: patient and family Mode of arrival: Wheelchair History of Present Illness HPI Narrative: 48-year-old male with no reported past medical history presents for 4 days of right lower extremity sores with pain and swelling. Patient states that he has had some sores on his right lower leg from his boots. Over the last 4 days he has been out crabbing and they have gotten wet. No medications taken prior to arrival. Patient reported numbness to triage, however denies this to myself. Related Data Previous Rx's Medication Instructions Recorded amoxicillin 500 mg-potassium 1 tab PO BID #10 tabs 10/06/22 clavulanate 125 mg tablet (Augmentin) docusate sodium 100 mg capsule 100 mg PO BID #20 caps 10/11/22 (Colace) ibuprofen 200 mg tablet 400 mg (2 x 200 mg) PO Q6H #60 tabs 10/11/22 oxycodone-acetaminophen 5 mg-325 2 tab PO Q6H PRN pain #20 tabs 10/11/22 mg tablet (Percocet) ciprofloxacin HCl 500 mg tablet 500 mg PO Q12H #20 tabs 05/09/24 Allergies Allergy/AdvReac Type Severity Reaction Status Date / Time No Known Drug Allergies Allergy Verified 10/11/22 11:04 Patient History Medical History Acute cholecystitis Surgical History Hx laparoscopic cholecystectomy Social History household members: spouse Smoking Status: Current every day smoker alcohol intake: never Smoking Status: Current every day smoker tobacco type: cigarettes and vaping alcohol intake frequency: 0-2 drinks per day Substance Use Type: does not use Exam Initial Vital Signs Initial Vital Signs: Vital Signs Temperature 98.3 F 05/09/24 19:30 Pulse Rate 102 H 05/09/24 19:30 Respiratory Rate 16 05/09/24 19:30 Blood Pressure 135/77 05/09/24 19:30 Pulse Oximetry 100 05/09/24 19:30 Oxygen Delivery Method Room Air 05/09/24 19:30 Const: Awake, alert, appears older than stated age Cardiac: regular rate, regular rhythm RESP: unlabored, clear bilaterally, no wheezing MSK:multiple open sores RLE, no deformity, 2+ DP pulses, full ROM, sensation intact Skin: Warm, Dry, scattered 1-2cm lesions over RLE between knee and ankle. Surrounding diffuse erythema wihtout crepitus or fluctuance Neuro: AO x3, CN II-XII grossly intact, moves all extremities Course Orders Ordered: ED Orders 05/09/24 19:56 Wound Culture and Gram Stain Stat 05/09/24 20:47 CBC Auto Diff [Complete Blood Count AUTO DIFF] Stat CMP [Comprehensive Metabolic Panel] Stat Lactate (Lactic Acid) Stat Procalcitonin Stat 05/09/24 21:00 Blood Culture Stat Discontinued Medications Ciprofloxacin (Cipro) 400 mg in 200 mls @ 200 mls/hr IV NOW ONE Stop: 05/09/24 21:30 Last Infusion: 05/09/24 21:56 Dose: Infused Documented By: Admin: 05/09/24 20:53 Dose: 200 mls/hr Documented By: SRINIVAS Vital Signs Vital signs: Vital Signs - 8 hr 05/09/24 19:30 05/09/24 19:34 05/09/24 19:34 Temperature 98.3 F Pulse Rate 102 H 100 H Respiratory Rate 16 Blood Pressure 135/77 135/77 Pulse Oximetry 100 99 Oxygen Delivery Method Room Air 05/09/24 20:00 05/09/24 20:00 05/09/24 20:30 Temperature Pulse Rate 94 H 107 H Respiratory Rate Blood Pressure 125/83 Pulse Oximetry 96 99 Oxygen Delivery Method 05/09/24 21:00 05/09/24 21:30 05/09/24 22:00 Temperature Pulse Rate 94 H 98 H 101 H Respiratory Rate Blood Pressure Pulse Oximetry 100 99 94 Oxygen Delivery Method 05/09/24 22:30 Temperature Pulse Rate 99 H Respiratory Rate Blood Pressure Pulse Oximetry 96 Oxygen Delivery Method MDM - Extremity (Nontraumatic) Differential Diagnosis Differential diagnosis: Likely cellulitis, lower extremity edema and other Lab Data 05/09/24 20:47 05/09/24 20:47 Labs: Lab Results 05/09/24 Range/Units 20:47 WBC 13.5 H (4.5-11.0) X10^3/uL RBC 4.01 L (4.5-5.9) X10^6/uL Hgb 11.6 L (13.5-17.5) g/dL Hct 34.5 L (41-53) % MCV 86.1 (80-100) fL MCH 28.9 (26-34) PG MCHC 33.6 (30-36) % RDW 13.7 (11.6-14.8) % Plt Count 423 H (150-400) X10^3/uL Neut % (Auto) 78.4 H (50-75) % Lymph % (Auto) 16.1 L (25-40) % [place] % (Auto) 4.3 (3-14) % Eos % (Auto) 0.6 L (2-4) % Baso % (Auto) 0.6 (0-2) % Neut # (Auto) 20728 H (3857-6671) /uL Lymph # (Auto) 2200 (6247-4182) /uL [place] # (Auto) 600 (0-900) /uL Eos # (Auto) 100 (0-450) /uL Baso # (Auto) 100 (0-100) /uL Sodium 136 L (137-145) mmol/L Potassium 4.2 (3.4-5.1) mmol/L Chloride 102 (98-107) mmol/L Carbon Dioxide 28 (22-32) mmol/L BUN 13 (9-20) mg/dL Creatinine 1.03 (0.66-1.25) mg/dL Estimated GFR > 60 (>60) mL/min BUN/Creatinine Ratio 12.6 (6-22) Glucose 97 (70-100) mg/dL Lactate 0.9 (0.7-2.1) mmol/L Calcium 9.0 (8.4-10.2) mg/dL Total Bilirubin 0.8 (0.2-1.3) mg/dL AST 40 (17-59) IU/L ALT 38 (<50) IU/L Alkaline Phosphatase 185 H (38-126) U/L Total Protein 8.5 H (6.3-8.2) g/dL Albumin 3.9 (3.5-5.0) g/dL Globulin 4.6 H (1.7-4.1) g/dL Albumin/Globulin Ratio 0.8 L (1.0-2.8) Procalcitonin 0.152 (<0.5) ng/mL MDM Narrative Medical decision making narrative: Patient with lower extremity cellulitis, likely from contaminated wounds. Due to reports of saltwater exposure patient to be treated for vibrio vulnificus with ciprofloxacin IV. Laboratory work ordered. Labs reviewed, mild leukocytosis present, procalcitonin 0.152. Other laboratory work unremarkable. Patient advised to stay in hospital for additional IV antibiotics, however he declined stating that a stay in the hospital would be too challenging for him and his . Patient advised that he was at high-risk of worsening infection with just oral agents. Patient stated that he understood risks of leaving, but requested to trial PO antibiotics first. Patient was given strict ED return precautions and wound care instructions. He was advised to avoid any additional saltwater exposure while his wounds are healing. Discharge Plan Departure Patient Disposition: Home Clinical Impression: Cellulitis of right leg without foot Instructions: DI for Cellulitis -- Adult Activity Restrictions/Additional Instructions: Take all of your antibiotics as prescribed even if you notice improvement in your leg. At this time I recommended admission, and there is a very real chance that this could get worse. I do hope that the pill antibiotics improve your infection. Make sure that you follow up with your primary care doctor. Stay away from salt water while your wounds are healing, at least the next 10 days Prescriptions: New ciprofloxacin HCl 500 mg tablet 500 mg PO Q12H Qty: 20 0RF No Action oxycodone-acetaminophen [Percocet] 5-325 mg tablet 2 tab PO Q6H PRN (Reason: pain) Qty: 20 0RF Rx Instructions: May take 1-2 tabs as needed every 6 hours. Call office at [phone] to make an appointment if you need a refill. docusate sodium [Colace] 100 mg capsule 100 mg PO BID Qty: 20 0RF Rx Instructions: Take while taking Percocet for pain to prevent constipation. ibuprofen 200 mg tablet 400 mg PO Q6H Qty: 60 0RF Rx Instructions: Alternate with Percocet as needed. Using these 2 medications together while help better with pain then using them alone. amoxicillin-pot clavulanate [Augmentin] 500-125 mg tablet 1 tab PO BID Qty: 10 0RF Referrals: Miscellaneous,Doctor, MD [Primary Care Provider] - Stand Alone Forms: Patient Portal/API
[2024-05-09] MEDS: CIPROFLOXACIN 400 MG/200 ML PIGGYBACK 200 MG IV (20:53)
[2024-05-09 21:05] LABS: Add Manual Diff / Slide Review NO; Basophils Absolute Auto 100 /uL (0-100); Basophils Percent Auto 0.6 % (0-2); Eosinophils Absolute Auto 100 /uL (0-450); Eosinophils Percent Auto 0.6 % (2-4); Hematocrit 34.5 % (41-53); Hemoglobin 11.6 g/dL (13.5-17.5); Lymphocytes Absolute Auto 2200 /uL (1100-4500); Lymphocytes Percent Auto 16.1 % (25-40); Mean Corpuscular HGB Conc 33.6 % (30-36); Mean Corpuscular Hemoglobin 28.9 PG (26-34); Mean Corpuscular Volume 86.1 fL (80-100); Monocytes Absolute Auto 600 /uL (0-900); Monocytes Percent Auto 4.3 % (3-14); Neutrophils Absolute Auto 10600 /uL (1500-7000); Neutrophils Percent Auto 78.4 % (50-75); Platelet Count 423 X10^3/uL (150-400); Red Blood Cell Count 4.01 X10^6/uL (4.5-5.9); Red Cell Distribution Width 13.7 % (11.6-14.8); White Blood Cell Count 13.5 X10^3/uL (4.5-11.0)
[2024-05-09 21:16] LABS: Alanine Aminotransferase 38 IU/L (<50); Albumin 3.9 g/dL (3.5-5.0); Albumin Globulin Ratio 0.8 (1.0-2.8); Alkaline Phosphatase 185 U/L (38-126); Aspartate Aminotransferase 40 IU/L (17-59); BUN Creatinine Ratio 12.6 (6-22); Bilirubin Total 0.8 mg/dL (0.2-1.3); Blood Urea Nitrogen 13 mg/dL (9-20); Carbon Dioxide 28 mmol/L (22-32); Chloride 102 mmol/L (98-107); Estimated Glomerular Filt Rate > 60 mL/min (>60); Globulin 4.6 g/dL (1.7-4.1); Glucose 97 mg/dL (70-100); HEMOLYSIS 19 (0-50); Lactate (Lactic Acid) 0.9 mmol/L (0.7-2.1); Potassium 4.2 mmol/L (3.4-5.1); Sodium 136 mmol/L (137-145); Total Protein 8.5 g/dL (6.3-8.2)
[2024-05-09 21:34] LABS: Procalcitonin 0.152 ng/mL (<0.5)
== END 2024-05-09 22:48 | disposition home or self-care (01) ==
PROVIDERS: Emergency Provider Emergency Medicine
DX: L03.115 Cellulitis of right lower limb (principal)
CPT/HCPCS: 36415; 80053; 83605; 84145; 85025; 87040; 87070; 87077; 87147; 87205; 96365; 99284; J0744

== ENCOUNTER 2024-10-12 15:53 | Emergency (ER) | payer MEDICAID, SELFPAY ==
[2022-10-05 07:34] VITALS: BMI 32.8
[2024-10-12 16:02] VITALS: BP 177/84; PULSE 58; RESP 20; TEMP 36.6; O2SAT 100; BMI 34.2
--- NOTE | 2024-10-12 16:32 | ED_ITS ---
HPI - URI/Sore Throat <Ary Maria PA-C - Last Filed: 10/12/24 17:19> General Chief Complaint: Upper Respiratory Symptoms Stated Complaint: cough, t-1, body aches,sore throat Time Seen by Provider: 10/12/24 16:05 Source: patient Mode of arrival: Ambulatory History of Present Illness HPI Narrative: 49-year-old male here in the ED for cough, body aches, and sore throat. A family member of his was diagnosed with influenza at this facility earlier today so he came in to see if he has it as well. Symptoms began yesterday. he has not taken any medications so far. Denies fevers. Denies shortness of breath, c hest pain, wheezing. No other concerns today. Related Data Previous Rx's Medication Instructions Recorded amoxicillin 500 mg-potassium 1 tab PO BID #10 tabs 10/06/22 clavulanate 125 mg tablet (Augmentin) docusate sodium 100 mg capsule 100 mg PO BID #20 caps 10/11/22 (Colace) ibuprofen 200 mg tablet 400 mg (2 x 200 mg) PO Q6H #60 tabs 10/11/22 oxycodone-acetaminophen 5 mg-325 2 tab PO Q6H PRN pain #20 tabs 10/11/22 mg tablet (Percocet) ciprofloxacin HCl 500 mg tablet 500 mg PO Q12H #20 tabs 05/09/24 cephalexin 500 mg capsule 500 mg PO TID #21 caps 05/12/24 Allergies Allergy/AdvReac Type Severity Reaction Status Date / Time No Known Drug Allergies Allergy Verified 10/11/22 11:04 Review of Systems <Ary Maria PA-C - Last Filed: 10/12/24 17:19> Review of Systems ROS Unobtainable: All systems reviewed & are unremarkable except as noted in HPI and below Patient History <Ary Maria PA-C - Last Filed: 10/12/24 17:19> Medical History Acute cholecystitis Surgical History Hx laparoscopic cholecystectomy Social History household members: spouse Smoking Status: Current every day smoker alcohol intake: never Smoking Status: Current every day smoker tobacco type: vaping alcohol intake frequency: 0-2 drinks per day Exam <Ary Maria PA-C - Last Filed: 10/12/24 17:19> Narrative Exam Narrative: GENERAL: [49] year old patient appears stated age. Well-developed patient, in no acute distress. HEAD: Atraumatic. Normocephalic. EYES: Pupils equal round and reactive. Extraocular motions intact. No scleral icterus. No injection or drainage. ENT: Nose without bleeding, purulent drainage. Throat without erythema, tonsillar hypertrophy or exudate. Airway patent. NECK: Trachea midline. Non tender CARDIOVASCULAR: Regular rate and rhythm without murmurs, gallops, or rubs. RESPIRATORY: Clear to auscultation. Breath sounds equal bilaterally. No wheezes, rales, or rhonchi. NEURO: AOx3. SKIN: No rash or erythema of visible areas Initial Vital Signs Initial Vital Signs: Vital Signs Temperature 97.8 F 10/12/24 16:02 Pulse Rate 58 L 10/12/24 16:02 Respiratory Rate 20 10/12/24 16:02 Blood Pressure 177/84 H 10/12/24 16:02 Pulse Oximetry 100 10/12/24 16:02 Oxygen Delivery Method Room Air 10/12/24 16:02 <Janeen Banegas MD - Last Filed: 10/13/24 08:11> Initial Vital Signs Initial Vital Signs: Vital Signs Temperature 97.8 F 10/12/24 16:02 Pulse Rate 58 L 10/12/24 16:02 Respiratory Rate 20 10/12/24 16:02 Blood Pressure 177/84 H 10/12/24 16:02 Pulse Oximetry 100 10/12/24 16:02 Oxygen Delivery Method Room Air 10/12/24 16:02 Course <Ary Maria PA-C - Last Filed: 10/12/24 17:19> Orders Ordered: ED Orders 10/12/24 16:06 Covid-19 + FLU A/B + RSV - PCR Stat Vital Signs Vital signs: Vital Signs - 8 hr 10/12/24 16:02 Temperature 97.8 F Pulse Rate 58 L Respiratory Rate 20 Blood Pressure 177/84 H Pulse Oximetry 100 Oxygen Delivery Method Room Air <Janeen Banegas MD - Last Filed: 10/13/24 08:11> Orders Ordered: ED Orders 10/12/24 16:06 Covid-19 + FLU A/B + RSV - PCR Stat Vital Signs Vital signs: Vital Signs - 8 hr 10/12/24 16:02 Temperature 97.8 F Pulse Rate 58 L Respiratory Rate 20 Blood Pressure 177/84 H Pulse Oximetry 100 Oxygen Delivery Method Room Air MDM - URI/Sore Throat <Ary Maria PA-C - Last Filed: 10/12/24 17:19> Lab Data Labs: Lab Results 10/12/24 Range/Units 16:06 SARS-CoV-2 (PCR) Negative (Negative) Influenza A (RT-PCR) Flu a negative (NEGATIVE) Influenza B (RT-PCR) Flu b negative (NEGATIVE) RSV (PCR) Negative (Negative) MDM Narrative Medical decision making narrative: Differential includes influenza, viral URI, bronchitis, pneumonia History and exam are with a viral URI. He did test negative for the flu today but he is here with his and daughter who both test positive for influenza B and his other daughter this morning. His symptoms just started last night so it maybe a little early for him test positive. We discussed supportive care and return precautions. He is normal lung sounds and normal vital signs other than elevated blood pressure for which he was instructed to follow up up with his PCP No further testing needed at this time. <Janeen Banegas MD - Last Filed: 10/13/24 08:11> Lab Data Labs: Lab Results 10/12/24 Range/Units 16:06 SARS-CoV-2 (PCR) Negative (Negative) Influenza A (RT-PCR) Flu a negative (NEGATIVE) Influenza B (RT-PCR) Flu b negative (NEGATIVE) RSV (PCR) Negative (Negative) Discharge Plan Departure Patient Disposition: Home Clinical Impression: Influenza Instructions: DI for Influenza -- Adult Activity Restrictions/Additional Instructions: Thank you for choosing us to care for you today. Your symptoms are indicative of a viral upper respiratory infection. He did test negative for influenza however since all the members of the family have it it is likely that you do as well. He did not have any sign of pneumonia or other bacterial infection so no antibiotics are needed. Please continue drinking plenty of fluids, resting, and taking [id number] cough suppressants and pain relievers as needed for your symptoms. If you have difficulty breathing or other new or worsening symptoms please see your PCP or return for re-evaluation. Prescriptions: No Action oxycodone-acetaminophen [Percocet] 5-325 mg tablet 2 tab PO Q6H PRN (Reason: pain) Qty: 20 0RF Rx Instructions: May take 1-2 tabs as needed every 6 hours. Call office at [phone] to make an appointment if you need a refill. docusate sodium [Colace] 100 mg capsule 100 mg PO BID Qty: 20 0RF Rx Instructions: Take while taking Percocet for pain to prevent constipation. ibuprofen 200 mg tablet 400 mg PO Q6H Qty: 60 0RF Rx Instructions: Alternate with Percocet as needed. Using these 2 medications together while help better with pain then using them alone. amoxicillin-pot clavulanate [Augmentin] 500-125 mg tablet 1 tab PO BID Qty: 10 0RF ciprofloxacin HCl 500 mg tablet 500 mg PO Q12H Qty: 20 0RF cephalexin 500 mg capsule 500 mg PO TID Qty: 21 0RF Referrals: Miscellaneous,[facility] [Primary Care Provider] - Stand Alone Forms: Patient Portal/API/Survey ED Sign-out <Janeen Banegas MD - Last Filed: 10/13/24 08:11> [facility] ED Attending [place] Attestation: I was immediately available in the department for consultation throughout this patient's visit. Janeen Banegas MD
[2024-10-12 16:51] LABS: Influenza A - CEPHEID Flu A NEGATIVE (NEGATIVE); Influenza B - CEPHEID Flu B NEGATIVE (NEGATIVE); Respiratory Syncytial Virus Negative (Negative)
[2024-10-12 17:02] LABS: COVID-19 CEPHEID 4-PLEX PCR Negative (Negative)
== END 2024-10-12 17:21 | disposition home or self-care (01) ==
PROVIDERS: Emergency Medicine; Emergency Provider Physician Assistant
DX: J10.2 Influenza due to other identified influenza virus with gastrointestinal manifestations (principal); J02.9 Acute pharyngitis, unspecified
CPT/HCPCS: 0241U; 99281; 99282